=== PATIENT | female | born 1940 | race Caucasian/White ===

== ENCOUNTER 2023-09-11 17:38 | Emergency (ER) | payer MEDICARE, SELFPAY ==
--- NOTE | ~2023-09-11 | XR_ITS ---
EXAMINATION: XR chest 1V portable DATE: 09/11/2023 20:49 INDICATION: Altered mental status. Weakness. TECHNIQUE: A single frontal view of the chest was obtained. COMPARISON: None. FINDINGS: There is no pneumonia, pleural effusion, or pneumothorax. The heart size is normal. IMPRESSION: 1. No acute cardiopulmonary disease. Reviewed, dictated and finalized at location E. UNICATION ARTS LECTURER
--- NOTE | ~2023-09-11 | CT_ITS ---
EXAMINATION: CT brain wo con DATE: 09/11/2023 20:21 INDICATION: Altered mental status. Left facial weakness. Slurred speech. TECHNIQUE: Computed tomography (CT) of the head was performed without intravenous contrast. The mA wa s adjusted according to patient size. Iterative reconstruction technique was employed. The dose-lengt h product was 605.33 mGy-cm. COMPARISON: None FINDINGS: There are scattered areas of low attenuation in the cerebral white matter. There is no intr acranial hemorrhage, acute infarction, or abnormal intracranial mass lesion. The ventricles are homero l in size. There is mild mucosal thickening in the paranasal sinuses. There are likely changes of ocu lar lens replacement surgeries. The mastoid air cells are normal. IMPRESSION: 1. Moderate nonspecific cerebral white matter disease, which likely represents chronic small vessel i schemic disease. Reviewed, dictated and finalized at location E. NG MANAGER IMPRESSION: 1. Moderate nonspecific cerebral white matter disease, which likely represents chronic small vessel ischemic disease.
[2023-09-11 17:36] VITALS: BP 176/90; PULSE 87; RESP 20; TEMP 36.4; O2SAT 98
--- NOTE | 2023-09-11 17:43 | ECG_ITS ---
Measurements Intervals [place] Rate: 82 P: 56 [place]: 173 QRS: 13 QRSD: 90 T: 24 QT: 368 QTc: 430 Interpretive Statements SINUS RHYTHM POOR R-WAVE PROGRESSION BORDERLINE ECG NO PREVIOUS ECG AVAILABLE FOR COMPARISON Electronically Signed On 09-12-2023 7:08:09 HOUSING OFFICER by Nasir Gordon M.D.
[2023-09-11 18:41] LABS: Basophils Absolute Auto 0.1 K/mm3 (0.0-0.1); Basophils Percent Auto 0.8 % (0.2-1.2); Eosinophils Absolute Auto 0.1 K/mm3 (0-0.3); Eosinophils Percent Auto 1.6 % (0-4.4); Immature Granulocyte Absolute 0.06 K/mm3 (0.00-0.031); Immature Granulocyte Percent A 0.8 % (0-0.5); Lymphocytes Absolute Auto 1.54 K/mm3 (0.9-3.2); Lymphocytes Percent Auto 20.4 % (18.3-44.2); Mean Corpuscular HGB Conc 31.8 g/dl (32-36); Mean Corpuscular Volume 97.6 fl (80-100); Monocytes Absolute Auto 0.8 K/mm3 (0.1-0.6); Monocytes Percent Auto 10.2 % (2.6-8.5); Neutrophils Percent Auto 66.2 % (45.5-73.1); Platelet Count Result 192 k/mm3 (150-375); Red Blood Count 4.51 M/mm3 (4.2-5.4); Red Cell Distribution Width 13.6 % (11.5-14.5); White Blood Count 7.5 K/mm3 (4.5-10.0)
[2023-09-11 18:50] LABS: Alanine Aminotransferase 13 U/L (6-35); Albumin Level 4.2 g/dL (3.5-5.1); Alkaline Phosphatase 65 U/L (38-126); Anion Gap 5 mmol/L (8-16); Aspartate Amino Transferase 23 U/L (14-36); Bilirubin,Total 0.7 mg/dL (0.2-1.3); Blood Urea Nitrogen 16 mg/dL (7-17); Calcium 9.3 mg/dL (8.4-10.2); Carbon Dioxide 28 mmol/L (22-30); Chloride 108 mmol/L (98-107); Estimated CRCL calculation 51 ml/min; Estimated Glomerular Filt Rate > 60; Glucose 110 mg/dL (65-110); Potassium 4.3 mmol/L (3.4-5.0); Sodium 141 mmol/L (137-145)
[2023-09-11 18:55] LABS: INR 0.9
[2023-09-11 18:56] LABS: Partial Thromboplastin Time 25.8 SECONDS (22.3-36.8)
--- NOTE | 2023-09-11 18:58 | ED.AMS ---
HPI - Altered Mental Status General Chief Complaint: Altered Mental Status Stated Complaint: AMS Time Seen by Provider: 09/11/23 18:20 Source: patient and family Limitations: dementia History of Present Illness HPI narrative: Patient is an 83-year-old female presents to the emergency department accompanied by family for reports of patient being lethargic and slumped over at the lunch room at her assisted living facility the patient was referred last normal around 12 30 today. Patient denies any current complaints or concerns. Patient denies any discomfort when she pees, abdominal pain, difficulty breathing, chest pain, bloody bowel movements, recent injuries, headache, numbness, weakness, confusion, sore throat, nasal congestion, cough, rash. Family is uncertain as to whether not the patient has had any new or change medications but does believe there may been a change recently to assist with her behavior. Patient is reportedly disoriented at baseline and typically oriented to self. Patient does not know your it is over the president is but does know her name and knows that she is at the hospital. Patient denies any difficulty swallowing or speech changes or vision changes. Related Data Allergies Allergy/AdvReac Type Severity Reaction Status Date / Time bacitracin Allergy Intermediate Unknown Verified 03/12/19 08:33 polymyxin B Allergy Intermediate Unknown Verified 03/12/19 08:33 Review of Systems Review of Systems: A 10 system review of systems was completed on the patient and is negative except for what is stated in the HPI. Nursing and ancillary documentation was reviewed. PMFSH Comments At time of signature, I have reviewed and agree with nursing past medical, surgical, social and family history unless otherwise noted. Please see the nursing chart for further information. There is no relevant family history pertinent to the presenting complaint. Exam Narrative: CONST: No acute distress. Well nourished. HENMT: Head is normocephalic and atraumatic. Moist mucous membranes. No posterior oropharynx erythema. EYES: No conjunctival icterus, injection, or pallor. PERRL. NECK: No meningeal signs. RESP: Able to speak in full sentences. Normal respiratory effort. CTAB. CARDIO: Regular rate. Regular rhythm. 2+ DP and radial pulses bilaterally. GI: Nondistended. No tenderness to palpation. Soft. : No CVA tenderness to palpation. SKIN: No rashes or lesions noted on exposed skin. NEURO: Oriented x1. Moves all extremities. Cranial nerves 2-12 intact. Functional Support Analyst strength is equal bilaterally. No pronator drift to the bilateral upper extremities. No drift of the bilateral lower extremities. Speech is clear and fluent. Following commands appropriately. EXTREM/MSK/BACK: No pedal edema. Psych: Speech and movement: Restless speech present Affect: Ecstatic affect present Course Vital Signs Vital signs: Vital Signs Temperature 97.6 F 09/11/23 17:36 Pulse Rate 87 09/11/23 17:36 Respiratory Rate 20 09/11/23 17:36 Blood Pressure 176/90 H 09/11/23 17:36 Pulse Oximetry 98 09/11/23 17:36 Oxygen Delivery Room Air 09/11/23 17:36 Temperature 97.6 F 09/11/23 17:36 Pulse Rate 77 09/11/23 19:19 Respiratory Rate 17 09/11/23 19:19 Blood Pressure 176/90 H 09/11/23 17:36 Pulse Oximetry 100 09/11/23 19:19 Oxygen Delivery Room Air 09/11/23 17:36 MDM - Altered Mental Status MDM Narrative Medical decision making narrative: Patient presents with the above complaint. Initial vitals are remarkable for no significant abnormalities. Physical examination as noted above. Plan discussed: Laboratory analysis, EKG, chest x-ray, CT of the head without contrast, Ativan, Seroquel. Patient was reassessed at the bedside. Patient is resting comfortably in no acute distress, calm, no focal neurological deficits. The patient has remained stable throughout the entire ED visit. family notes lashonda
--- NOTE | 2023-09-11 19:07 | PC.NURSE ---
Pt awake, ripping off monitor cords, taking off gown, will not allow RN to readjust and apply cords/gown. Pt attempting to scoot out of bed. RNs assisted pt back into laying position, bed alarm applied. made aware, at bedside. Pt shaking her chest at visitors, trying to grab staff. gave VORB for 1mg ativan IVP stat. This RN covered pt with blanket and deescalated pt to rest in bed.
--- NOTE | 2023-09-11 19:11 | PC.NURSE ---
Pt refusing another set of VS at this time
[2023-09-11] MEDS: SODIUM CHLORIDE 0.9% IV 1,000 ML 999 ML IV CONT (19:15)
[2023-09-11] MEDS: LORazepam INJ (*CRX) 2 MG/ML VIAL 1 MG IV PUSH (19:15)
[2023-09-11 19:19] VITALS: PULSE 77; RESP 17; O2SAT 100
[2023-09-11 19:30] LABS: Ethanol < 10 mg/dL (<10)
[2023-09-11 19:54] LABS: Lipase 209 U/L (23-300); Magnesium 2.6 mg/dL (1.6-2.3)
[2023-09-11] MEDS: QUEtiapine FUMARATE 25 MG TABLET PO (20:31)
[2023-09-11 21:32] LABS: Amphetamine Screen Urine Negative (Negative); Barbiturate Screen Urine Negative (Negative); Benzodiazepines Screen Urine Negative (Negative); Cannabinoid Screen Urine Negative (Negative); Cocaine Screen Urine Negative (Negative); Methadone Screen Urine Negative (Negative); Opiate Screen Urine Negative (Negative); Phencyclidine Screen Urine Negative (Negative)
[2023-09-11 21:36] LABS: Appearance Urine Clear (Clear); Bacteria Urine None Seen /hpf; Bilirubin Urine Negative (Negative); Blood Urine 1+ (Negative); Color Urine Yellow (Yellow); Glucose Urine UA Negative (Negative); Ketones Urine Negative (Negative); Leukocyte Esterase Ur Negative LEU/UL (Negative); Need Manual Microscopic Reviewed; Nitrate Urine Negative (Negative); Non Pathogenic Casts 0-2; Protein Urine Negative (Negative); Specific Grav Ur 1.007 (1.001-1.035); Squamous Epithelial Cell Urine Occasional /hpf (Few); Urobilinogen Urine 0.2 mg/dL (<2.0); WBC Urine 0-5 /hpf; pH Urine 7.5 (5.0-9.0)
[2023-09-11 21:38] LABS: Add Urine Microscopic? YES
[2023-09-11 22:56] VITALS: BP 141/90; PULSE 70; RESP 15; TEMP 36.7; O2SAT 96
[2023-09-11 23:53] LABS: Free T4 Free Thyroxine Reflex 1.05 ng/dL (0.78-2.19)
[2023-09-12 00:46] LABS: Total Triiodothyronine (T3) 1.08 NG/ML (0.97-1.69)
== END 2023-09-11 22:58 ==
PROVIDERS: Emergency Medicine; Emergency Provider Student in an Organized Health Care Education/Training Program; PCP Internal Medicine Geriatric Medicine
DX: R41.82 Altered mental status, unspecified (principal); Z79.899 Other long term (current) drug therapy; R90.82 White matter disease, unspecified; R94.31 Abnormal electrocardiogram [ECG] [EKG]
CPT/HCPCS: 36415; 70450; 71045; 80053; 80307; 81001; 83690; 83735; 84439; 84443; 84480; 85025; 85610; 85730; 93005; 96361; 96374; 99285; A9270; J2060; J7030